=== PATIENT | male | born 1950 | race Caucasian/White ===

== ENCOUNTER 2018-11-27 20:12 | Emergency (ER) | payer OTHER ==
--- NOTE | 2018-11-27 21:19 | RAD ---
Radiograph right hand 3 views: DATE: 11/27/2018 Time: 9:00 PM HISTORY: 68-year-old male status post acute traumatic injury to fingers. FINDINGS: There is a very comminuted, displaced fracture involving the entire second distal phalanx (index fing er). No disruption of the DIP joint surface. Soft tissue swelling, irregularity, and defect overlying the fracture. No other fracture identified. IMPRESSION: Acute, traumatic, comminuted, displaced fracture of the second distal phalanx.
[2018-11-27] MEDS ORDERED: Adacel (T-DAP) 0.5 ML SYRINGE ONE (21:27)
[2018-11-27] MEDS ORDERED: Lidocaine 1% (PF) 30 ML VIAL ONE (21:27)
[2018-11-27] MEDS ORDERED: Morphine 4 MG/ML VIAL ONE (21:27)
== END 2018-11-27 23:34 | disposition home or self-care (01) ==
LOC: ERS 20:12
DX: S62.630B Displaced fracture of distal phalanx of right index finger, initial encounter for open fracture (principal); I25.2 Old myocardial infarction; I10 Essential (primary) hypertension; F17.210 Nicotine dependence, cigarettes, uncomplicated; Z23 Encounter for immunization; W26.8XXA Contact with other sharp object(s), not elsewhere classified, initial encounter
CPT/HCPCS: 64450; 90471; 90715; 96365; 96375; J0690; J2001; J2270

== ENCOUNTER 2018-12-02 10:31 | Outpatient (CLI) | payer MEDICARE, MEDICAID ==
[2018-12-02 12:27] LABS: #Basophils 0.1 thou/uL (0.0-0.2); #Eosinphils 0.4 thou/uL (0.0-0.7); #Lymphocytes 1.4 thou/uL (1.20-3.40); #Monocytes 0.7 thou/uL (0.11-0.59); %Basophils 1.3 % (0.0-1.0); %Lymphocytes 24.9 % (21.0-51.0); %Monocytes 13.2 % (0.0-10.0); %Neutrophils 53.7 % (42.0-75.0); Hemoglobin 13.4 g/dL (14.0-18.0); Mean Corpuscular HGB CONC 33.2 g/dL (32.0-36.0); Mean Corpuscular Hemoglobin 31.4 pg (27.0-31.0); Mean Corpuscular Volume 94.8 fL (78.0-98.0); Mean Platelet Volume 6.6 fL (7.4-10.4); Platelet Count 238 thou/uL (130-400); RBC Distribution Width 11.7 % (11.5-14.5); Red Blood Cell (RBC) Count 4.27 mill/uL (4.70-6.10); White Blood Cell (WBC) Count 5.5 thou/uL (4.8-10.8)
--- NOTE | 2018-12-03 21:24 | EKG ---
Test Reason : Blood Pressure : / mmHG Vent. Rate : 104 BPM Atrial Rate : 104 BPM P-R Int : 138 ms QRS Dur : 088 ms QT Int : 348 ms P-R-T Axes : 072 024 026 degrees QTc Int : 457 ms Sinus tachycardia Otherwise normal ECG When compared with ECG of 22-MAY-2014 03:29, Premature ventricular complexes are no longer Present Left posterior fascicular block is no longer Present Nonspecific T wave abnormality, improved in Inferior leads T wave inversion no longer evident in Lateral leads QT has shortened Confirmed by Helen BEVERLY ([id number]) on 12/03/2018 9:24:08 PM Referred By: VERNA Confirmed By:Helen BEVERLY
== END 2018-12-02 10:32 | disposition home or self-care (01) ==
LOC: LABBT 10:31
PROVIDERS: ATTEND Orthopaedic Surgery Hand Surgery
DX: Z01.818 Encounter for other preprocedural examination (principal); S62.600B Fracture of unspecified phalanx of right index finger, initial encounter for open fracture
CPT/HCPCS: 85025; 93005; 93010

== ENCOUNTER 2019-01-04 13:24 | Day surgery (SDC) | payer MEDICARE, MEDICAID ==
[2018-12-30 16:22] VITALS: BMI 23.8
[~2019-01-04 13:24] MED LIST: Dexamethasone 20 MG/5 ML VIAL ONE; Lidocaine 1% PF 5 ML VIAL ONE; Ondansetron PF 4 MG/2 ML Vial ONE; PHENYLEPHRINE-NS 100 MCG/ML 10 ML SYRINGE ONE; PROPOFOL 200 MG/20 ML VIAL ONE; ePHEDrine 50 MG/ML VIAL ONE
[2019-01-04 14:15] LABS: #Eosinphils 0.3 thou/uL (0.0-0.7); #Lymphocytes 1.4 thou/uL (1.20-3.40); #Monocytes 1.2 thou/uL (0.11-0.59); #Neutrophils 6.6 thou/uL (1.40-6.50); %Basophils 0.4 % (0.0-1.0); %Lymphocytes 15.1 % (21.0-51.0); %Monocytes 12.4 % (0.0-10.0); %Neutrophils 69.1 % (42.0-75.0); Hemoglobin 13.7 g/dL (14.0-18.0); Mean Corpuscular HGB CONC 32.4 g/dL (32.0-36.0); Mean Corpuscular Hemoglobin 30.6 pg (27.0-31.0); Mean Corpuscular Volume 94.6 fL (78.0-98.0); Mean Platelet Volume 6.4 fL (7.4-10.4); Platelet Count 297 thou/uL (130-400); RBC Distribution Width 11.9 % (11.5-14.5); Red Blood Cell (RBC) Count 4.48 mill/uL (4.70-6.10); White Blood Cell (WBC) Count 9.6 thou/uL (4.8-10.8)
[2019-01-04 14:37] LABS: Anion Gap 12 mmol/L (10-20); BUN (Urea Nitrogen) 23 mg/dL (8.4-25.7); Calc. Creatinine Clearance 76 mL/min (70-130); Carbon Dioxide 21 mmol/L (23-31); Chloride 106 mmol/L (98-107); Estimated GFR-MDRD 85; Glucose 85 mg/dL (80-115); Potassium 4.7 mmol/L (3.5-5.1); Sodium 134 mmol/L (136-145)
[2019-01-04] MEDS ORDERED: Fentanyl 100 MCG/2 ML VIAL ONE (18:46)
[2019-01-04] MEDS ORDERED: Bupivacaine PF 0.5% 30 ML VIAL ONE (18:55)
[2019-01-04] MEDS ORDERED: Thrombin 5000 UNITS/5 ML VIAL ONE (18:56)
[2019-01-04] MEDS ORDERED: Bacitracin Zinc Ointment 30 gm TUBE ONE (18:56)
[2019-01-04] MEDS ORDERED: Sodium Chloride 0.9% 30 ML ONE (18:56)
[2019-01-04] MEDS ORDERED: Tobramycin/dex OPTH 2.5 ML BOT ONE (20:11)
[2019-01-04] MEDS ORDERED: Tobramycin/Dexamethasone Ophth Oint 3.5 GM TUBE ONE (20:11)
[2019-01-04] MEDS ORDERED: Tobramycin Sulfate 1.2 GM VIAL ONE (20:11)
[2019-01-04] MEDS ORDERED: Sodium Chloride 0.9% 10 ML ONE (20:14)
--- NOTE | 2019-01-04 21:04 | RAD ---
EXAM: XR Finger(s) Rt Min 2 View PROVIDED CLINICAL HISTORY: Closure with skin graft COMPARISON: 12/03/2018 FINDINGS: Frontal and lateral spot fluoroscopic images of the affected digit submitted. Interval removal of ten dons seen previously transfixing distal phalangeal fracture. Osseous deficiency involving the terminal tuft. Radiodense material overlies the distal aspects of the affected digit IMPRESSION: As above.
[2019-01-04] MEDS ORDERED: Labetalol HCl 100 MG/20 ML VIAL ONE (21:10)
[2019-01-04] MEDS ORDERED: Ketorolac Tromethamine 30 MG/ML VIAL ONE (21:39)
--- NOTE | 2019-01-05 09:07 | OP ---
DATE OF PROCEDURE: 01/04/2019 POSTOPERATIVE DIAGNOSES: 1. Right wrist lipoma, 1.5 cm. 2. 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 PROCEDURES PERFORMED: 1. Bone cortex excision, distal phalanx right index finger for osteomyelitis. 2. Wound debridement and closure of the dorsal wound using rotational flap. 3. Excision biopsy, giant cell tumor forearm. 4. Excision biopsy, wrist, lipoma. 5. Removal of two K-wires x2. TOURNIQUET TIME: 25 minutes. ESTIMATED BLOOD LOSS: 10 mL. C-ARM USE: Yes. INDICATIONS FOR PROCEDURE: The patient returns after reportedly he had some purulence from his hand. Did report that it was on the dorsum of the nail where he had open wound, which we had debridement and possibly closed. Denied any other purulence, but he reports pain over his K-wire tracts. He had some fluctuance here as well. He also had on his wrist a large like giant cell tumor mass almost 1 cm, 5 mm wide, 1 cm long geographic mass. FINDINGS: Gross abscess around the distal phalanx osteomyelitis site. DESCRIPTION OF PROCEDURE: After successful general endotracheal anesthesia, the limb was prepped and draped. The patient had a block performed of 12 mL of 0.5% Marcaine at metacarpophalangeal joint level. We then outlined the incision over the wrist mass which was dorsal radial and after this incision, we found what is probably a lipoma 1.5 cm. Over the dorsal wrist mass, we made an ellipse for 1 to 2 mm skin margin, got hemostasis here and it looked as if it was not a simple cyst. The patient then had the attention turned back to the finger, we irrigated this with 3 L of normal saline in the area we did curettage after we opened and dried, then we prepared a rotational flap, moved it over and distally 2.5 mm x 1 mm respectively. Then, we removed the K-wires and made a 1 cm incision to debride what was necrotic bone. We irrigated the necrotic bone area with normal saline under Pulsavac pressure 1 L with 50,000 units of bacitracin per L inside. After this, the drainage was over and the blood had ceased. We then took curettage of this area, 360 degrees circumferentially tourniquet time of 25 minutes. Again, noted gross abscess around distal phalanx K-wires, they were removed. The area was irrigated copiously with over 600 mL of 0.5% normal saline under bulb syringe pressure with antibiotics inside. The flap was closed well. Then, at the back table, was given more effective treatment, we then brought some antibiotic beads with tobramycin, mixed them, placed them on a string with 3 about the size of 2/3 of a small M&M and prepared the place them in the wound after irrigation was completed, we placed this in the wound, each placed with a stitch loosely to hold most of the antibiotic beads in place and he will wear a bunion splint until he returns in 2 to 3 weeks and go to therapy as well. Job ID: [id number]
== END 2019-01-04 22:18 | disposition home or self-care (01) ==
LOC: SDC 13:24
PROVIDERS: ATTEND Orthopaedic Surgery Hand Surgery
PROC: 0PBT0ZZ Excision of Right Finger Phalanx, Open Approach (ICD-10-PCS; principal; 2019-01-04)
PROC: 0JBG0ZZ Excision of Right Lower Arm Subcutaneous Tissue and Fascia, Open Approach (ICD-10-PCS; 2019-01-04)
PROC: 0HXFXZZ Transfer Right Hand Skin, External Approach (ICD-10-PCS; 2019-01-04)
DX: D36.10 Benign neoplasm of peripheral nerves and autonomic nervous system, unspecified (principal); D49.89 Neoplasm of unspecified behavior of other specified sites; M87.9 Osteonecrosis, unspecified; M86.8X4 Other osteomyelitis, hand; B96.89 Other specified bacterial agents as the cause of diseases classified elsewhere; S61.200A Unspecified open wound of right index finger without damage to nail, initial encounter; I10 Essential (primary) hypertension; F17.200 Nicotine dependence, unspecified, uncomplicated; Z79.899 Other long term (current) drug therapy; Z98.890 Other specified postprocedural states
CPT/HCPCS: 11044; 14040; 25075; 73140; 76000; 80048; 85025; 87070; 87075; 87205; C1713; 36415; 87077; 87186; 88305; 88307; J0690; J1100; J1885; J2001; J2405; J2704; J3010; J3260; J3490; S0020

== ENCOUNTER 2020-06-18 16:25 | Emergency (ER) | payer MEDICARE, OTHER ==
[2020-06-18] MEDS ORDERED: Amoxicillin/Potassium Clav 875 MG TAB ONE (19:08)
[2020-06-18] MEDS ORDERED: Boostrix 0.5 ML (Tdap) VIAL ONE (19:08)
--- NOTE | 2020-06-18 19:46 | RAD ---
THREE VIEWS LEFT HAND: Date: 06-18-2020 History: Dog bite FINDINGS: There is chondrocalcinosis in the region of the triangular fibrocartilage complex. There is no radiop aque foreign body or subcutaneous gas. No displaced fracture or evidence of dislocation is seen. There is prominent soft tissue swelling, especially along the dorsal aspect of the hand overlying the metacarpals posteriorly on the lateral view. IMPRESSION: Diffuse soft tissue swelling with no associated fracture or dislocation. POS: REGINA
== END 2020-06-18 20:40 | disposition home or self-care (01) ==
LOC: ERS 16:25
DX: S61.452A Open bite of left hand, initial encounter (principal); L03.116 Cellulitis of left lower limb; I25.2 Old myocardial infarction; I10 Essential (primary) hypertension; F17.210 Nicotine dependence, cigarettes, uncomplicated; W64.XXXA Exposure to other animate mechanical forces, initial encounter
CPT/HCPCS: 90471; 90715